=== PATIENT | male | born 1995 ===

== ENCOUNTER 2016-10-27 09:07 | Emergency (ER) | payer BC ==
[2016-10-27 09:20] VITALS: BP 138/79
[2016-10-27] MEDS ORDERED: DELTASONE PO ONE (09:54)
--- NOTE | 2016-10-27 10:19 | Emergency Department Report ---
Entered by KD MELLO, acting as scribe for BILLIE BECKMAN PA. ED Rash HPI - HPI Chief Complaint: Skin Rash Stated Complaint: SEVERE ECZEMA Time Seen by Provider: 10/27/16 09:51 Duration: 1 month Location: Neck, Other (right upper extremity) Suspected Cause: Other (eczema flare up ) Rash Symptoms: Yes Itching (arms , neck), No Facial Swelling, No Tongue/Oral Swelling, No Breathing Difficulties, No Choking Sensation, No Wheezing/Dyspnea, No Peeling, No Blistering, No Fever, No Lightheaded Severity: moderate Other History: Pt is a 20 y.o. male with a PMHx of eczema, who is here today for evaluation of a one month hx of itchy, scaling rash to the right upper extremity and neck. He denies improvement in the rash with A&D cream or with Cortizone cream. Pt states that his current rash is consistent with those he has experienced in the past secondary to eczema. He denies airway swelling or SOB. ED Review of Systems ROS: Stated complaint: SEVERE ECZEMA Other details as noted in HPI Comment: All other systems reviewed and negative Constitutional: no symptoms reported ENT: other (No airway swelling. No tongue swelling. ). denies: ear pain, throat pain Respiratory: no symptoms reported. denies: cough, shortness of breath, SOB with exertion, SOB at rest, wheezing Cardiovascular: denies: chest pain, palpitations Gastrointestinal: denies: abdominal pain, nausea, diarrhea Musculoskeletal: denies: back pain, joint swelling, arthralgia Skin: rash, pruritus Neurological: denies: headache, weakness, paresthesias Hematological/Lymphatic: denies: swollen glands ED Past Medical Hx - Past Medical History Previous Medical History?: Yes Hx Asthma: Yes Additional medical history: ECZEMA - Surgical History Past Surgical History?: No - Family History Family history: no significant - Social History Smoking Status: Never Smoker Substance Use Type: None - Medications Home Medications: Home Medications Medication Instructions Recorded Confirmed Last Taken Type Triamcinolone 0.5% [Kenalog 0.5% 1 applic TP TID #1 tube 10/27/16 Unknown Rx CREAM] hydrOXYzine HCL [Atarax] 25 mg PO Q6HR PRN #20 tablet 10/27/16 Unknown Rx predniSONE [Deltasone] 50 mg PO QAM #3 tab 10/27/16 Unknown Rx Rash Exam - Exam General: Vital signs noted. No distress. Alert and acting appropriately. This is a 20-year-old male well-nourished well-developed in no acute distress HEENT: No Periorbital Edema, No Conjuctival Injection, No Chemosis, No Perioral Edema, No Tongue Edema, No Uvular Edema, No Compromised Airway, No Drooling Lungs: Yes Good Air Exchange, No Wheezes, No Ronchi, No Stridor, No Cough, No Labored Respirations, No Retractions, No Use of Accessory Muscles, No Other Abnormal Lung Sounds Heart: Yes Regular, No Murmur Skin: Yes Other (dry scaly area noted to the upper extremity at antecubital fossa, posterior and lateral neck.), No Urticarial Rash, No Maculopapular Rash, No Morbilliform rash, No Bulla(e), No Excoriations, No Weeping, No Tenderness, No Erythema, No Edema, No Encrustations Other: Positive: Abdomen Normal, Neurologic Normal, Musculoskeletal Normal ED Course Vital Signs 10/27/16 09:18 Temperature 98.3 F Pulse Rate 43 L Respiratory 17 Rate Blood Pressure 138/79 O2 Sat by Pulse 100 Oximetry Vital Signs 10/27/16 10/27/16 09:18 10:18 Temperature 98.3 F Pulse Rate 43 L 55 L Respiratory 17 Rate Blood Pressure 138/79 O2 Sat by Pulse 100 Oximetry Heart rate is 55 and asymptomatic - Reevaluation(s) Reevaluation #1: 10/27/16 10:07 Patient given Deltasone 60 mg by mouth in emergency room. ED Medical Decision Making - Medical Decision Making ED course: Patient here with Eczema flareup that's been ongoing for months and he's been using [id number] topical medication that he said is not helping. Patient with eczema flareup and was treated in emergency room with deltasone 60 mg by mouth. I discussed treatment plan with patient and he voiced understanding. Patient has no respiratory symptoms. PT discharged home with prescription for Atarax, triamcinolone ointment and prednisone. Critical care attestation.: If time is entered above; I have spent that time in minutes in the direct care of this critically ill patient, excluding procedure time. ED Disposition Clinical Impression: Pruritic dermatitis Eczema Qualifiers: Eczema type: unspecified Qualified Code(s): L30.9 - Dermatitis, unspecified Disposition: DC-01 TO HOME OR SELFCARE Is pt being admited?: No Does the pt Need Aspirin: No Condition: Stable Instructions: Eczema (ED), Itchy Skin (ED) Additional Instructions: Please increase her fluid intake Take medication as prescribed Follow up with stem roller operator for chronic eczema Follow-up with your primary care physician and 3-5 days and if you do not have a primary care physician he can follow-up at [facility]. Prescriptions: hydrOXYzine HCL [Atarax] 25 mg PO Q6HR PRN #20 tablet PRN Reason: Itching predniSONE [Deltasone] 50 mg PO QAM #3 tab Triamcinolone 0.5% [Kenalog 0.5% CREAM] 1 applic TP TID #1 tube Referrals: PRIMARY CARE, [Primary Care Provider] - 3-5 Days [facility] [Outside] - 3-5 Days VERITO COVINGTON MD [Staff Physician] - 3-5 Days Forms: Work/School Release Form(ED) This documentation as recorded by the RIAZ aranda KELLY,accurately reflects the service I personally performed and the decisions made by me,BILLIE BECKMAN PA.
== END 2016-10-27 10:24 | disposition home or self-care (01) ==
LOC: ED 09:07
DX: L30.9 Dermatitis, unspecified (principal); J45.909 Unspecified asthma, uncomplicated
CPT/HCPCS: 99282; J7512